=== PATIENT | male | born 1985 | race African-American/Black ===

== ENCOUNTER 2017-08-07 15:37 | Emergency (ER) | payer OTHER ==
[~2017-08-07] VITALS: Ht 193 cm; Wt 118.0 kg
[2017-08-07] MEDS ORDERED: IBUPROFEN 800 MG TAB PO ONE (16:45)
[2017-08-07] MEDS ORDERED: OSEL75CA PO (18:15)
[2017-08-07] MEDS ORDERED: TUSSSUS6 PO (18:15)
[2017-08-07] MEDS ORDERED: ALBU17IN2 INH (18:15)
[2017-08-07 18:38] VITALS: BP 130/74
== END 2017-08-07 18:39 | disposition home or self-care (01) ==
LOC: M ED 15:37
DX: J20.9 Acute bronchitis, unspecified (principal); B34.9 Viral infection, unspecified